=== PATIENT | female | born 1985 | race Caucasian/White ===

== ENCOUNTER 2019-03-20 05:28 | Day surgery (SDC) | payer BC, OTHER ==
[~2019-03-20] VITALS: Ht 175.3 cm; Wt 53.1 kg
--- NOTE | ~2019-03-20 | O ---
[facility] [place] [address] OPERATIVE REPORT Name: NAGELITO STRONG Room #: DEP [facility] M.R.#: [id number] Admission: 03/20/19 ������������������ Attend Phys: Geovanny Hawley MD Discharge: 03/20/19 ������������������ Date of : 89 Report #: [id number] THIS REPORT FOR: //name// CC: Radha Viveros DATE OF SERVICE: 03/20/2019 PREOPERATIVE DIAGNOSES: 1. Umbilical hernia. 2. Skin pocket at belly button piercing site. POSTOPERATIVE DIAGNOSES: 1. Umbilical hernia. 2. Skin pocket at belly button piercing site. OPERATIVE PROCEDURE: 1. Laparoscopic repair of umbilical hernia with mesh. 2. Excision and revision of the belly button piercing site. OPERATING SURGEON: Geovanny Hawley MD INDICATIONS FOR PROCEDURE: The patient is a 33-year-old female who presented with complaints of umbilical hernia that is reducible with increasing in size. She wished to have this repaired and in addition, she was also noted to have a skin pocket after a belly button piercing that she had and this is collecting dirt and she wished to have this excised and revised. DESCRIPTION OF PROCEDURE: After explaining to the patient in detail and informed consent was obtained, the patient was identified in the preoperative holding area. The patient was transferred to the operating room and was placed in supine position. Sequential compressive devices were placed for DVT prophylaxis. Preoperative antibiotics were given. After induction of anesthesia, the abdomen was prepped and draped in a sterile fashion. Through a left upper quadrant 1 cm incision and using Optiview technique, peritoneal cavity was entered and pneumoperitoneum was created. Thereafter, under direct vision, another 8 mm trocar was placed in the left flank and another 5 mm trocar was placed in the left lower quadrant. On initial inspection, the patient was noted to have a 1 cm sized umbilical hernial defect with some preperitoneal fat within this. This was all gently dissected off. The surrounding fat was dissected free. I then used an 11 cm Ventralight mesh and a Orient-Jordi suture was placed in the center of the mesh on the adherent surface and this was reduced into the abdominal cavity and using a suture passer, the Orient-Jordi suture was then anchored on to the umbilical hernial defect that also helped to approximate [address] [address] OPERATIVE REPORT Name: ANGELITO STRONG Room #: DEP [facility] M.R.#: [id number] Admission: 03/20/19 ������������������ Attend Phys: Geovanny Hawley MD Discharge: 03/20/19 ������������������ Date of : 89 Report #: [id number] the defect. Once this was completed, I then placed SecureStrap circumferentially at 1 cm intervals. Absolute hemostasis was ensured. The abdomen was then desufflated. The left upper quadrant and left flank incision sites were closed in layers using 0 Vicryl for the fascia. Skin was closed with 4-0 Monocryl for all the incisions. Dermabond was applied. I then proceeded with excision of the belly button piercing site. An elliptical incision was made superior and inferior to the skin pocket that was noted and the skin was removed from the subcutaneous tissue. The incision was then approximated using 4-0 Monocryl in a subcuticular fashion. Dermabond was applied. Dressing was placed. Approximately about 10 mL of lidocaine and Marcaine mixture was injected into all the incisions. The patient was awoken from anesthesia and was transferred to the recovery room in stable condition. CONDITION OF THE PATIENT: Stable. FLUIDS GIVEN: Per anesthesia notes. SPECIMEN SENT: None. COMPLICATIONS: None. ANESTHESIA: General anesthesia. ��������������������������������������������� ���������������������������������������� By: ��������������������������������������������� [id number] Geovanny Hawley MD /nt
[2019-03-20 09:20] VITALS: BP 147/93
[2019-03-20 12:12] VITALS: BP 147/93
== END 2019-03-20 13:22 | disposition home or self-care (01) ==
LOC: OR 05:28 → TBA 05:28 → OR 10:08
DX: K42.9 Umbilical hernia without obstruction or gangrene (principal); L03.316 Cellulitis of umbilicus; Z98.890 Other specified postprocedural states; Z87.891 Personal history of nicotine dependence
CPT/HCPCS: 50010; 50101; 50249; 50386; 50555; 50980; 50984; 52265; 52266; 53310; 54022; 54118; 56525; 56526; 56530; 57092; 62110; 62900; 70005